=== PATIENT | female | born 1955 | race African-American/Black ===

== ENCOUNTER 2020-12-16 09:47 | Emergency (ER) | payer OTHER, SELFPAY ==
--- NOTE | ~2020-12-16 | XR_ITS ---
EXAMINATION: XR chest 2V DATE: 12/16/2020 10:21 INDICATION: Cough. Hypertension. TECHNIQUE: PA and lateral views of the chest were obtained. COMPARISON: Chest radiograph dated 06/29/2014 FINDINGS: Persistent mild linear discoid atelectasis/scarring at the lateral left upper lung zone. No new airsp diana opacities, pulmonary edema, pleural effusion or pneumothorax. The cardiomediastinal silhouette is normal. Interval progression of moderate midthoracic spondylosis. IMPRESSION: 1. No acute cardiopulmonary disease. Reviewed, dictated and finalized at location A.
[2020-12-16 09:52] VITALS: BP 235/82; PULSE 74; RESP 16; TEMP 36.8; O2SAT 100
[2020-12-16 10:07] VITALS: BP 179/86
[2020-12-16] MEDS: ACETAMINOPHEN 500 MG TABLET 1000 MG PO (10:37)
[2020-12-16 10:40] LABS: Basophils Percent Auto 0.3 % (0.2-1.2); Eosinophils Percent Auto 0.6 % (0-4.4); Hematocrit 38.7 % (37.0-47.0); Hemoglobin 12.4 g/dL (12.0-15.0); Immature Granulocyte Absolute 0.01 K/mm3 (0.00-0.031); Immature Granulocyte Percent A 0.2 % (0-0.5); Lymphocytes Absolute Auto 2.11 K/mm3 (0.9-3.2); Lymphocytes Percent Auto 33.7 % (18.3-44.2); Mean Corpuscular Hemoglobin 27.9 pg (26-34); Mean Platelet Volume 10.1 fl (7.4-10.4); Monocytes Absolute Auto 0.4 K/mm3 (0.1-0.6); Monocytes Percent Auto 5.7 % (2.6-8.5); Neutrophils Absolute Auto 3.7 K/mm3 (1.3-6.7); Neutrophils Percent Auto 59.5 % (45.5-73.1); Platelet Count Result 262 k/mm3 (150-375); Red Blood Count 4.45 M/mm3 (4.2-5.4); Red Cell Distribution Width 13.4 % (11.5-14.5); White Blood Count 6.3 K/mm3 (4.5-10.0)
[2020-12-16 10:52] LABS: Anion Gap 7 mmol/L (8-16); Blood Urea Nitrogen 7 mg/dL (7-17); Calcium 9.5 mg/dL (8.4-10.2); Carbon Dioxide 24 mmol/L (22-30); Chloride 110 mmol/L (98-107); Estimated CRCL calculation 43 ml/min; Estimated Glomerular Filt Rate > 60; Glucose 113 mg/dL (65-110); Potassium 3.6 mmol/L (3.4-5.0); Sodium 141 mmol/L (137-145)
--- NOTE | 2020-12-16 12:29 | ED.HA ---
HPI - Headache General Chief Complaint: Headache Stated Complaint: Headache Time Seen by Provider: 12/16/20 09:55 History of Present Illness HPI Narrative: Patient is a 65-year-old female who presents ER with reports of headache. Throbbing and frontal. No radiation. Reports occasional have blurred vision for 5 minutes. Patient is under stress due to the fact that there has been recent collapse of the ceiling in her apartment and there was a water leak. She has been left to clean up the mold on her own. This happened 2 days ago which is when her headache started. Her landlord is supposed to have the place cleaned up today and the water leak is already been repaired. Related Data Allergies Allergy/AdvReac Type Severity Reaction Status Date / Time No Known Allergies Allergy Verified 12/16/20 09:57 Review of Systems Review of Systems: All systems reviewed & are unremarkable except as noted in HPI and below Constitutional: Constitutional: Denies chills, Denies fever(s) and Denies weakness Eyes: Eyes: Reports change in vision Cardiovascular: Cardiovascular: Denies chest pain and Denies radiating jaw, neck or arm pain Respiratory: Respiratory: Denies cough and Denies dyspnea Gastrointestinal: Gastrointestinal: Denies abdominal pain, Denies nausea and Denies vomiting Neurologic: Denies dizziness, Denies syncope, Reports headache(s), Denies focal weakness and Denies numbness PMFSH Past Medical History Medical History (Updated 12/16/20 @ 12:39 by Oliver Rodriguez MD) Depression Hyperlipidemia Hypertension Surgical History Surgical History (Updated 12/16/20 @ 12:38 by Oliver Rodriguez MD) No pertinent past surgical history Social History Social History (Updated 12/16/20 @ 12:39 by Oliver Rodriguez MD) Smoking status: Never smoker Exam Narrative: GENERAL: Well-appearing, well-nourished, and intermittently tearful.. HEAD: Normocephalic, atraumatic. EYES: PERRL and EOMI. CHEST: Clear to auscultation. No respiratory distress. HEART: Regular rate and rhythm. Normal peripheral pulses. ABDOMEN: Soft, nontender, nondistended. EXTREMITIES: Normal range of motion. No edema. SKIN: Warm, dry, no rash. NEURO: No focal deficits. Alert and oriented x3. PSYCH: Tearful with depressed mood, denies SI/HI. No hallucinations. Course Course Emergency Course: Headache improved with Tylenol. Patient seems to be under a lot of stress which is causing headache. She has been intermittently tearful in the room. Denies SI/HI. Vital Signs Vital signs: Vital Signs Temperature 98.2 F 12/16/20 09:52 Pulse Rate 74 12/16/20 09:52 Respiratory Rate 16 12/16/20 09:52 Blood Pressure 235/82 H 12/16/20 09:52 Pulse Oximetry 100 12/16/20 09:52 Temperature 98.2 F 12/16/20 09:52 Pulse Rate 74 12/16/20 09:52 Respiratory Rate 16 12/16/20 09:52 Blood Pressure 179/86 H 12/16/20 10:07 Pulse Oximetry 100 12/16/20 09:52 MDM - Headache Lab Data Result diagrams: 12/16/20 10:31 12/16/20 10:31 Labs: Lab Results 12/16/20 12/16/20 Range/Units 10:31 10:31 WBC 6.3 (4.5-10.0) K/mm3 RBC 4.45 (4.2-5.4) M/mm3 Hgb 12.4 (12.0-15.0) g/dL Hct 38.7 (37.0-47.0) % MCV 87.0 (80-100) fl MCH 27.9 (26-34) pg MCHC 32.0 (32-36) g/dl RDW 13.4 (11.5-14.5) % Plt Count 262 (150-375) k/mm3 MPV 10.1 (7.4-10.4) fl Immature Gran % (Auto) 0.2 (0-0.5) % Neut % (Auto) 59.5 (45.5-73.1) % Lymph % (Auto) 33.7 (18.3-44.2) % [place] % (Auto) 5.7 (2.6-8.5) % Eos % (Auto) 0.6 (0-4.4) % Baso % (Auto) 0.3 (0.2-1.2) % Lymph # (Auto) 2.11 (0.9-3.2) K/mm3 [place] # (Auto) 0.4 (0.1-0.6) K/mm3 Eos # (Auto) 0.0 (0-0.3) K/mm3 Baso # (Auto) 0.0 (0.0-0.1) K/mm3 Abs Immat Gran (auto) 0.01 (0.00-0.031) K/mm3 Absolute Neuts (auto) 3.7 (1.3-6.7) K/mm3 Absolute Nucleated RBC 0.0 (0.0-0.012) K/mm3 Nucleated RBC % 0.0 (0.0-
== END 2020-12-16 13:09 | disposition home or self-care (01) ==
PROVIDERS: Emergency Provider Emergency Medicine
DX: G44.209 Tension-type headache, unspecified, not intractable (principal); F32.9 Major depressive disorder, single episode, unspecified; E78.5 Hyperlipidemia, unspecified; I10 Essential (primary) hypertension
CPT/HCPCS: 36415; 71046; 80048; 85025; 99283; A9270